=== PATIENT | male | born 1940 | race Caucasian/White ===

== ENCOUNTER 2018-07-21 13:17 | Inpatient (IN) | payer MEDICARE, BC ==
--- NOTE | 2018-07-21 16:57 | ED ---
General Adult HPI - General Source: patient, RN notes reviewed Mode of arrival: wheelchair Limitations: no limitations <Lauren Wright - Last Filed: 07/21/18 21:56> <Jack French - Last Filed: 07/21/18 23:38> - General Chief complaint: Extremity Problem,Nontraumatic Stated complaint: Leg pain Time Seen by Provider: 07/21/18 16:25 - History of Present Illness Initial comments: Patient is a 78 year old male with history of myasthenia gravis who presents to the ER with his nephew with complaint of right leg pain that started 7 days ago after he was standing for 13 hours; no trauma. He also hit his right ribs 2 weeks ago against a handrail; no head injury or loss of consciousness. Denies anticoagulant use. His nephew states that the patient cannot take care of himself lately because he cannot walk due to this new pain. Denies numbness, tingling, bowel or bladder incontinence, saddle anesthesia, fever, chills, abdominal pain, chest pain, shortness of breath, back pain, nausea, vomiting, headache, visual changes, or any other complaints. (Lauren Wright) - Related Data Home Medications Medication Instructions Recorded Confirmed Ibuprofen [Motrin] 400 mg PO Q6HR PRN 07/21/18 07/21/18 LORazepam [Ativan] 0.5 mg PO BID@1100,0000 07/21/18 07/21/18 Metoprolol Succinate (ER) [Toprol 25 mg PO DAILY 07/21/18 07/21/18 Xl] Allergies Allergy/AdvReac Type Severity Reaction Status Date / Time Sulfa (Sulfonamide AdvReac Abdominal Verified 07/21/18 21:28 Antibiotics) Pain Review of Systems ROS Other: All systems not noted in ROS Statement are negative. <Lauren Wright - Last Filed: 07/21/18 21:56> ROS Other: All systems not noted in ROS Statement are negative. <Jack French - Last Filed: 07/21/18 23:38> ROS Statement: Those systems with pertinent positive or pertinent negative responses have been documented in the HPI. Past Medical History Past Medical History: COPD Additional Past Medical History / Comment(s): Myasthenia gravis, irregular heart beat History of Any Multi-Drug Resistant Organisms: None Reported Past Surgical History: Appendectomy, Hernia Repair Additional Past Surgical History / Comment(s): hemorrhoidectomy Past Psychological History: No Psychological Hx Reported Smoking Status: Never smoker Past Alcohol Use History: None Reported Past Drug Use History: None Reported <Lauren Wright - Last Filed: 07/21/18 21:56> General Exam Limitations: no limitations General appearance: alert, in no apparent distress Head exam: Present: atraumatic, normocephalic Eye exam: Present: normal appearance Respiratory exam: Present: normal lung sounds bilaterally Cardiovascular Exam: Present: irregular rhythm (Patient states this is chronic.) Extremities exam: Present: full ROM, normal capillary refill, other (2+ edema bilateral lower extremities. DP bilaterally and PT on left palpable and strong. ) Back exam: Present: other Neurological exam: Present: alert, oriented X3 Psychiatric exam: Present: normal affect, normal mood Skin exam: Present: warm, dry <Lauren Wright - Last Filed: 07/21/18 21:56> Vital Signs 07/21/18 07/21/18 07/21/18 13:57 17:16 19:51 Temperature 98.1 F 97.8 F Pulse Rate 79 86 64 Respiratory 18 18 18 Rate Blood Pressure 150/87 142/68 152/72 O2 Sat by Pulse 99 96 100 Oximetry 07/21/18 22:20 Temperature Pulse Rate 99 Respiratory 18 Rate Blood Pressure 150/76 O2 Sat by Pulse 98 Oximetry EKG Findings - EKG Comments: EKG Findings:: EKG done on 07/21/2018: Vent. rate 65 bpm. MS interval 156 ms. QRS duration 94 ms. QT/QTc 446/463 ms. P-R-T axes 50 0 -48. Sinus rhythm with premature supraventricular complexes. ST&T wave abnormality. Prolonged QT <Lauren Wright - Last Filed: 07/21/18 21:56> Medical Decision Making - Lab Data Result diagrams: 07/21/18 19:45 07/21/18 19:45 <Lauren Wright - Last Filed: 07/21/18 21:56> - Lab Data Result diagrams: 07/21/18 19:45 07/21/18 19:45 <Jack French - Last Filed: 07/21/18 23:38> - Medical Decision Making Right lower extremity venous doppler duplex US negative for DVT. Right knee and tibia/fibula x-rays are negative. Right rib and chest x-ray negative for fracture, but reveals possible left upper lobe infiltrate. 2 view CXR reveals possible left upper lobe infiltrate on frontal view, but none on lateral view. EKG as documented. Patient reports that he has a chronic irregular heartbeat. Patient's nephew left the hospital and stated that the patient has "nowhere to go" because the patient lives alone. Case discussed in detail with attending physicians Dr. Hannah and (later when Dr. Hannah was ending his shift) with Dr. French. (Lauren Wright) I saw this patient in conjunction with the physician investigative assistant. I performed independent history and physical exam. Agree with case management.. Discussed case with patient's physician, Dr. Sinclair who will admit to see about rehabilitation placement. (Jack French) - Lab Data Lab Results 07/21/18 07/21/18 07/21/18 Range/Units 19:45 19:45 19:45 WBC 4.7 (3.8-10.6) k/uL RBC 3.62 L (4.30-5.90) m/uL Hgb 12.5 L (13.0-17.5) gm/dL Hct 35.4 L (39.0-53.0) % MCV 97.8 (80.0-100.0) fL MCH 34.4 (25.0-35.0) pg MCHC 35.2 (31.0-37.0) g/dL RDW 12.4 (11.5-15.5) % Plt Count 192 (150-450) k/uL Neutrophils % 72 % Lymphocytes % 15 % Monocytes % 9 % Eosinophils % 2 % Basophils % 1 % Neutrophils # 3.4 (1.3-7.7) k/uL Lymphocytes # 0.7 L (1.0-4.8) k/uL Monocytes # 0.4 (0-1.0) k/uL Eosinophils # 0.1 (0-0.7) k/uL Basophils # 0.0 (0-0.2) k/uL Sodium 137 (137-145) mmol/L Potassium 3.5 (3.5-5.1) mmol/L Chloride 99 (98-107) mmol/L Carbon Dioxide 28 (22-30) mmol/L Anion Gap 10 mmol/L BUN 11 (9-20) mg/dL Creatinine 0.55 L (0.66-1.25) mg/dL Est GFR (CKD-EPI)AfAm >90 (>60 ml/min/1.73 sqM) Est GFR (CKD-EPI)NonAf >90 (>60 ml/min/1.73 sqM) Glucose 102 H (74-99) mg/dL Calcium 9.2 (8.4-10.2) mg/dL Magnesium 1.8 (1.6-2.3) mg/dL Total Bilirubin 1.3 (0.2-1.3) mg/dL AST 26 (17-59) U/L ALT 26 (21-72) U/L Alkaline Phosphatase 87 (38-126) U/L Total Creatine Kinase 177 H (55-170) U/L CK-MB (CK-2) 2.1 (0.0-2.4) ng/mL CK-MB (CK-2) Rel Index 1.2 Troponin I <0.012 (0.000-0.034) ng/mL Total Protein 7.0 (6.3-8.2) g/dL Albumin 3.8 (3.5-5.0) g/dL Disposition <Lauren Wright - Last Filed: 07/21/18 21:56> Is patient prescribed a controlled substance at d/c from ED?: No <Jack French - Last Filed: 07/21/18 23:38> Clinical Impression: Unable to ambulate, Weakness Disposition: ADMITTED IP TO THIS HOSP Condition: Poor Referrals: Catalino Sinclair MD [Primary Care Provider] - 1-2 days
[2018-07-21] MEDS ORDERED: KETOROLAC 60 MG/2 ML VIAL IM STA (17:52)
--- NOTE | 2018-07-21 17:58 | XR ---
EXAMINATION TYPE: XR knee complete RT DATE OF EXAM: 07/21/2018 COMPARISON: NONE HISTORY: Knee pain TECHNIQUE: 3 views FINDINGS: I see no fracture nor dislocation. Joint spaces are normal. There is no sign of knee joint effusion. IMPRESSION: Negative right knee exam.
--- NOTE | 2018-07-21 17:59 | XR ---
EXAMINATION TYPE: XR tibia fibula RT DATE OF EXAM: 07/21/2018 COMPARISON: NONE HISTORY: Pain TECHNIQUE: 4 views FINDINGS: I see no fracture nor dislocation. Tibia and fibula appear intact. There are plantar and Ac hilles calcaneal spurs. IMPRESSION: No acute abnormality of the right tibia and fibula.
--- NOTE | 2018-07-21 18:01 | XR ---
EXAMINATION TYPE: XR ribs RT w pa chest xray DATE OF EXAM: 07/21/2018 COMPARISON: NONE HISTORY: Pain TECHNIQUE: 5 views FINDINGS: On the chest x-ray there is increased density over the left upper lobe that could be some p leural pulmonary infiltrate. The other lung groves are fairly clear. There is no pneumothorax. The ri ght ribs appear intact. I see no displaced rib fracture. IMPRESSION: No rib fracture seen. Left upper lobe pleural and pulmonary infiltrate. Limited exam.
--- NOTE | 2018-07-21 18:34 | US ---
EXAMINATION TYPE: US venous doppler duplex LE RT DATE OF EXAM: 07/21/2018 6:20 PM COMPARISON: NONE CLINICAL HISTORY: Pain. EC Patient with anterior midline right lower leg winter per patient noted afte r standing for approximately 13 hours SIDE PERFORMED: Right TECHNIQUE: The lower extremity deep venous system is examined utilizing real time linear array sonog dianelys with graded compression, doppler sonography and color-flow sonography. VESSELS IMAGED: Common Femoral Vein Deep Femoral Vein Greater Saphenous Vein * Femoral Vein Popliteal Vein Small Saphenous Vein * Proximal Calf Veins (* superficial vessels) Right Leg: Negative for DVT IMPRESSION: No evidence of deep venous thrombosis in the right leg.
--- NOTE | 2018-07-21 20:04 | XR ---
EXAMINATION TYPE: XR chest 2V DATE OF EXAM: 07/21/2018 COMPARISON: Today HISTORY: Leg pain TECHNIQUE: Frontal and lateral views of the chest are obtained. FINDINGS: 2 views of the chest show an enlarged heart. There is no heart failure. There is increased density over the left and right upper lung groves that is probably due to kyphotic deformity and grant st wall deformity. I do not see an infiltrate on the lateral view. There is suggestion however of an infiltrate in the periphery of the left upper lobe on the frontal view. There is no pleural effusion. There is thoracic vertebral body anterior wedging and kyphotic curvature. There is osteopenia. IMPRESSION: Cardiomegaly. No heart failure. Possible left upper lobe infiltrate. Limited exam due to patient positioning and kyphotic curvature.
[2018-07-21 20:08] LABS: Basophils % (A) 1 %; Eosinophils # (A) 0.1 k/uL (0-0.7); Eosinophils % (A) 2 %; HCT 35.4 % (39.0-53.0); HGB 12.5 gm/dL (13.0-17.5); Lymphocytes # (A) 0.7 k/uL (1.0-4.8); Lymphocytes % (A) 15 %; MCH 34.4 pg (25.0-35.0); MCHC 35.2 g/dL (31.0-37.0); MCV 97.8 fL (80.0-100.0); Mean Platelet Volume 7.5; Monocytes # (A) 0.4 k/uL (0-1.0); Monocytes % (A) 9 %; Neutrophils # (A) 3.4 k/uL (1.3-7.7); Neutrophils % (A) 72 %; Platelet Count 192 k/uL (150-450); RBC 3.62 m/uL (4.30-5.90); RDW 12.4 % (11.5-15.5); WBC 4.7 k/uL (3.8-10.6)
[2018-07-21 20:20] LABS: Creatine Kinase 177 U/L (55-170)
[2018-07-21 20:22] LABS: ALT 26 U/L (21-72); AST 26 U/L (17-59); Albumin 3.8 g/dL (3.5-5.0); Alkaline Phosphatase 87 U/L (38-126); Anion Gap 10 mmol/L; Blood Urea Nitrogen 11 mg/dL (9-20); Calcium 9.2 mg/dL (8.4-10.2); Carbon Dioxide 28 mmol/L (22-30); Chloride 99 mmol/L (98-107); Glucose 102 mg/dL (74-99); Magnesium 1.8 mg/dL (1.6-2.3); Potassium 3.5 mmol/L (3.5-5.1); Sodium 137 mmol/L (137-145); Total Bilirubin 1.3 mg/dL (0.2-1.3)
[2018-07-21 20:29] LABS: Creatine Kinase MB 2.1 ng/mL (0.0-2.4)
[2018-07-21 20:33] LABS: Troponin I <0.012 ng/mL (0.000-0.034)
[2018-07-21] MEDS ORDERED: NALOXONE 0.4 MG/ML 1 ML VIAL IV PRN (23:33)
[2018-07-21] MEDS ORDERED: IBUPROFEN 400 MG TAB PO PRN (23:36)
[2018-07-22] MEDS: LORazepam 0.5 MG TAB PO SCH ×2 (01:04→10:41)
[2018-07-22] MEDS: SODIUM CHLORIDE 0.9% 1,000 ML IV SCH ×5 (02:01→23:54)
[2018-07-22 02:28] VITALS: BMI 18.4
[2018-07-22] MEDS: FAMOTIDINE 20 MG TAB PO SCH ×2 (10:41→20:57)
[2018-07-22] MEDS: METOPROLOL SUCCINATE (ER) 25 MG TAB.ER.24H PO SCH (10:41)
--- NOTE | 2018-07-22 18:32 | HP ---
HISTORY AND PHYSICAL CHIEF COMPLAINT: Generalized weakness and debility with failure to thrive, frequent falling and inability to ambulate. HISTORY OF PRESENT ILLNESS: This is the first known admission for this 78-year-old white male who has gradually been deteriorating over the last several years. He has become progressively more weak. He has been living alone. He has been given a diagnosis of myasthenia gravis in the past, but he has an atypical case, if it has. He is very independent and has not been willing to follow up with Neurology or take any medications as prescribed. He has gotten to the point now where he cannot stand, and he has been falling at home. He and his family realize that he needs to be placed. REVIEW OF SYSTEMS: He has had no headaches, cognitive changes, changes in the cranial nerves, chest pain, shortness of breath, cough, hemoptysis, heart disease, angina, infarctions, etc. He does have a heart murmur and he has frequent PVCs, which has been chronic and asymptomatic. He has had no abdominal pain, nausea, vomiting, melena, hematochezia, jaundice. No pancreatitis, kidney failure, renal disease, stones, dysuria, frequency, incontinence, etc. He is not diabetic. Past medical history, family history and personal and social histories are otherwise essentially unremarkable. He is ALLERGIC TO SULFA. He is on Toprol-XL 50 mg once a day, Ativan 0.5 mg 3 times a day. Family history and personal and social histories are unremarkable and noncontributory. He has never smoked or drunk. PHYSICAL EXAMINATION: Blood pressure is 123/68 with a pulse 74, respirations of 30, and he is afebrile. In general he appears to be malnourished, chronically ill, slightly pale and dehydrated. Head, ears, eyes, nose, mouth and throat are normal. Carotids are normal. Neck veins are not distended. Chest is clear. Cardiac exam demonstrates a grade 3/ systolic murmur with occasional skipped beats. The abdomen is flat, soft, nontender. Extremities demonstrate poor muscle bulk. He has dry skin on the lower extremities with some evidence of mild venostasis disease and onychomycosis. Neurologically he is intact, but extremities are extremely weak. There is no evidence of any muscle spasm or twitching. He is admitted to the hospital with diagnoses: 1. Inability to ambulate, failure to thrive and general debility. 2. History of possible myasthenia gravis or other neuromuscular disease. 3. Frequent premature ventricular contractions. 4. Cardiac murmur. PLAN: 1. Bed rest. 2. IV fluids. 3. Discharge planning. ANALISA / NAI: [id number] /
--- NOTE | 2018-07-22 18:44 | PN ---
PROGRESS NOTE DATE OF SERVICE: 07/22/2018 CHIEF COMPLAINT: Generalized weakness. HISTORY OF PRESENT ILLNESS: This gentleman has not had any significant change in his program overnight, but he is expressing a lot of anxiety and asking many questions about his condition and where he will go. He seems to be resigned to moving to a intermediate. Cardiac exam is unchanged. Chest is clear. IMPRESSION: 1. General debility. 2. Myasthenia gravis. 3. Premature ventricular contractions. 4. Cardiac murmur. PLAN: Start working on discharge planning. MMEVINL / CARLITAN: [id number] /
[2018-07-23] MEDS: LORazepam 0.5 MG TAB PO SCH ×2 (00:24→10:57)
[2018-07-23] MEDS: SODIUM CHLORIDE 0.9% 1,000 ML IV SCH ×4 (04:42→21:20)
[2018-07-23] MEDS: FAMOTIDINE 20 MG TAB PO SCH ×2 (08:52→21:17)
[2018-07-23] MEDS: METOPROLOL SUCCINATE (ER) 25 MG TAB.ER.24H PO SCH (08:52)
[2018-07-24] MEDS: LORazepam 0.5 MG TAB PO SCH ×2 (00:19→11:20)
[2018-07-24] MEDS: SODIUM CHLORIDE 0.9% 1,000 ML IV SCH ×2 (07:23→11:21)
[2018-07-24] MEDS: FAMOTIDINE 20 MG TAB PO SCH ×2 (07:31→20:27)
[2018-07-24] MEDS: METOPROLOL SUCCINATE (ER) 25 MG TAB.ER.24H PO SCH (07:31)
--- NOTE | 2018-07-24 15:31 | PN ---
PROGRESS NOTE CHIEF COMPLAINT: Failure to thrive and delirium. HISTORY OF PRESENT ILLNESS: This gentleman is getting a bit confused. It sounds like he is hallucinating. PHYSICAL EXAM: Chest is clear. Cardiac exam is normal. IMPRESSION: 1. General debility and failure to thrive. 2. Myasthenia gravis. 3. Delirium. PLAN: We will start working on discharge location. ANALISA / CARLITAN: [id number] /
--- NOTE | 2018-07-24 16:34 | PN ---
PROGRESS NOTE CHIEF COMPLAINT: Failure to thrive and general debility. HISTORY OF PRESENT ILLNESS: This gentleman is getting confused from time to time. He has never had a problem with this before. PHYSICAL EXAM: He is neurologically intact. Chest is clear. Cardiac exam is normal. At the present time he is awake, alert, oriented and lucid. IMPRESSION: 1. Failure to thrive. 2. General debility. 3. Myasthenia gravis. 4. Delirium. PLAN: Continue searching for snf bed. MMODL / IJN: [id number] /
[2018-07-25] MEDS: LORazepam 0.5 MG TAB PO SCH ×3 (01:04→22:28)
[2018-07-25] MEDS: SODIUM CHLORIDE 0.9% 1,000 ML IV SCH ×4 (01:08→22:28)
[2018-07-25 01:42] LABS: Appearance,Urine Clear (Clear); Bilirubin,Urine Negative (Negative); Blood,Urine Negative (Negative); Color,Urine Yellow; Glucose,Urine (UA) Negative (Negative); Ketones,Urine 1+ (Negative); Leukocyte Esterase,Urine Negative (Negative); Nitrite,Urine Negative (Negative); Protein,Urine Negative (Negative)
[2018-07-25] MEDS: METOPROLOL SUCCINATE (ER) 25 MG TAB.ER.24H PO SCH (08:30)
[2018-07-25] MEDS: FAMOTIDINE 20 MG TAB PO SCH ×2 (08:30→20:47)
--- NOTE | 2018-07-25 16:48 | PN ---
PROGRESS NOTE DATE OF SERVICE: 07/25/2018 CHIEF COMPLAINT: General debility and weakness. HISTORY OF PRESENT ILLNESS: This gentleman seems to be doing a little bit better. The episodes of confusion and hallucination seem to have subsided, probably from more rest. PHYSICAL EXAM: Chest is clear. The cardiac exam is normal. The. Abdomen is soft. Neuromuscular status is unchanged. IMPRESSION: 1. General debility and weakness. 2. Myasthenia gravis. PLAN: Await discharge location. MMODL / IJN: [id number] /
[2018-07-26] MEDS: SODIUM CHLORIDE 0.9% 1,000 ML IV SCH ×5 (02:54→23:47)
[2018-07-26] MEDS: METOPROLOL SUCCINATE (ER) 25 MG TAB.ER.24H PO SCH (09:30)
[2018-07-26] MEDS: FAMOTIDINE 20 MG TAB PO SCH ×2 (09:30→20:12)
[2018-07-26] MEDS: LORazepam 0.5 MG TAB PO SCH ×2 (10:51→23:35)
--- NOTE | 2018-07-26 23:34 | CONS ---
CONSULTATION DATE OF CONSULTATION: 07/26/2018. PURPOSE OF CONSULTATION: Evaluate for mental status change. HISTORY OF PRESENTING ILLNESS: The patient is a 78-year-old male, he was admitted to the medical floor for debility and failure to thrive. He has a possible history of myasthenia gravis. Apparently the patient has been living at home independently. Over the last few years he has had a gradual decline in his ability to function. More recently he developed progressive weakness. He had gotten to a point where he could not stand and had been falling at home. According to nursing, over the weekend the patient had kept an episode of confusion where he became disoriented. He was making odd statements. On the the Dr. Sinclair noted that the patient was having some anxiety about his situation. On the and Dr. Sinclair documented that the patient was having episodes of confusion and indications that he also was hallucinating. Nursing staff said that he was disorganized in things he was saying. He was also making odd statements that made little sense. It was noted that yesterday, Dr. Sinclair documented that the patient "seems to be doing a little bit better. The episodes of confusion and hallucinations seem to have subsided, probably from more rest." When I talked to the nurse, she confirmed Dr. Sinclair's observation that today he seems to be doing better. He was better oriented. He was more appropriate in his interactions. He had a calm manner overall. When I talked to the patient, he was quite conversant. He talked at length about a number of issues. A fair amount of time he seemed to ramble and would talk about events that were somewhat disconnected from his current situation. He was unable to provide much information about things leading up to his hospitalization. He made mention of his mother passing some years back, some issues relating to his brother, and even some things about obtaining issues from the past. The patient states that he had been having pain problems, though today pain issues in his lower legs seem pretty much relieved. The patient indicated that he has not had any past history of psychiatric issues. He has not previously been on any psychotropic medications. Currently, he is on Ativan 0.5 mg twice a day as his only psychotropic medication. MENTAL STATUS: Patient was lying in bed. He gave fair eye contact. He was somewhat restless. He answered questions with appropriate responses, though often he would digress and would talk in a fairly rapid voice about events from his past. He would give considerable amount of details. He talked in a somewhat rapid staccato type rhythm. His affect was a little anxious, though not significantly so. His mood was fairly good. He did not appear to be in distress from a psychiatric standpoint. He did focus some on questions he had about discharge. He understood that he may be going to rehabilitation facility within the next few days. On cognitive exam, he did not make too much effort to answer questions. He knew that he was in [facility]. He made some suggestions that he thought he had been in the hospital for 2 weeks, though was unable to give the date of hospitalization. He did state that his home medications included metoprolol 25 mg a day and Ativan. He indicated he was on 0.25 mg twice a day. He said he has been taking Ativan for a number of years. He was able to describe his current circumstances. He was able to give some details about his followup with Dr. Sinclair. ASSESSMENT: This is a 78-year-old male who had acute mental status change. It is likely he had some degree of delirium, possibly relating to medications as well as some other factors that led to his coming into the hospital. He has shown clearing in the last day. He is concerned about his continued use and Ativan which will have significant negative cognitive affects, particularly on memory as well as motor impairment. Overall, he does not seem to be showing any signs of mood disorder. anxiety seems reasonably controlled. I will initiate a taper of Ativan given the problems with exacerbation of memory and motor problems with Ativan. I will reduce his dose to 0.25 mg tonight and then re-evaluate tomorrow. We will need to monitor for withdrawal issues. I will continue to follow. MMODL / IJN: [id number] /
[2018-07-27] MEDS: METOPROLOL SUCCINATE (ER) 25 MG TAB.ER.24H PO SCH (07:38)
[2018-07-27] MEDS: FAMOTIDINE 20 MG TAB PO SCH ×2 (07:38→20:18)
--- NOTE | 2018-07-27 16:50 | PN ---
PROGRESS NOTE DATE OF SERVICE: 07/26/2018 CHIEF COMPLAINT: Myasthenia gravis and general debility with inability to ambulate. HISTORY OF PRESENT ILLNESS: This gentleman continues to do fairly well. His mentation has cleared nicely. We are waiting for discharge to alf. PHYSICAL EXAM: Neuromuscularly he is unchanged with severe muscle wasting in the upper and lower extremities. Chest is clear. Cardiac exam is normal. IMPRESSION: 1. General debility. 2. Inability to ambulate. 3. Failure to thrive. 4. Malnutrition. 5. Myasthenia gravis. PLAN: Await for placement. MMODL / IJN: [id number] /
[2018-07-27] MEDS: SODIUM CHLORIDE 0.9% 1,000 ML IV SCH ×2 (17:10→20:14)
--- NOTE | 2018-07-27 17:14 | PN ---
PROGRESS NOTE DATE OF SERVICE: 07/27/2018 CHIEF COMPLAINT: General debility and failure to thrive. HISTORY OF PRESENT ILLNESS: This patient is about the same. Delirium is clear. He is waiting for a bed. PHYSICAL EXAM: Chest is clear. Cardiac exam is normal. He is extremely asthenic and weak. IMPRESSION: 1. Myasthenia gravis. 2. General debility. 3. Failure to thrive. 4. Inability to ambulate. PLAN: Await jail placement. MMODL / IJN: [id number] /
[2018-07-27] MEDS: LORazepam 0.5 MG TAB PO SCH (20:18)
[2018-07-28] MEDS: FAMOTIDINE 20 MG TAB PO SCH ×2 (07:44→21:58)
[2018-07-28] MEDS: METOPROLOL SUCCINATE (ER) 25 MG TAB.ER.24H PO SCH (07:45)
--- NOTE | 2018-07-28 13:12 | CDI ---
Documentation Clarification Form Date: 07/28/2018 1:03:09 PM From: Margaux Price CCS, CCDS Admit Date: 07/26/2018 2:36:00 PM Patient Name: Louis Choudhary Visit Number: [id number] Discharge Date: ATTENTION: The Clinical Documentation Specialists (CDI) and [facility] Coding Staff appreciate your assistance in clarifying documentation. Please respond to the clarification below the line at the bottom and electronically sign. The CDI & [facility] Coding staff will review the response and follow-up if needed. Please note: Queries are made part of the Legal Health Record. If you have any questions, please contact the author of this message via ITS. Dr. Catalino Sinclair: Malnutrition has been documented in the 07/27 attending progress note: "Neuromuscularly he is unchanged with severe muscle wasting in the upper and lower extremities". Diagnosed with general debility, Inability to ambulate, Failure to thrive, Malnutrition and has known myasthenia gravis. History/Risk Factors: As above, Lives alone. Frequent falls. Clinical Indicators: Presented with right leg pain, inability to walk. Labs: Hgb 12.5*, Glucose 102^, Total protein 7.0, Albumin 3.8. BMI: 18.5 Dietitian consult & evaluation: Appetite fair, Consuming 50-75% meals with fair intake, Underweight. 78% ideal body weight. 21 lb weight loss this year per patient. Chronic severe protein calorie malnutrition. Visible severe body fat & muscle loss, reduced functional status. Treatment: Nutritional supplements, IM Toradol, IV fluid rate 100 - 20, po Ativan. In your professional opinion, can you please clarify if these findings signify one of the following conditions? Mild Protein-Calorie Malnutrition Moderate Protein-Calorie Malnutrition Severe Protein-Calorie Malnutrition Other condition, please specify Unable to determine (Last Revision: October 2017) MTDD
[2018-07-28] MEDS: LORazepam 0.5 MG TAB PO SCH (21:58)
[2018-07-29] MEDS: METOPROLOL SUCCINATE (ER) 25 MG TAB.ER.24H PO SCH (08:10)
[2018-07-29] MEDS: FAMOTIDINE 20 MG TAB PO SCH (08:10)
--- NOTE | 2018-07-29 11:57 | DS ---
DISCHARGE SUMMARY CHIEF COMPLAINT: Failure to thrive, general debility, generalized weakness and inability to ambulate. HISTORY OF PRESENT ILLNESS AND PHYSICAL EXAM: Details of this man's history and physical can be found in the initial workup. LABORATORY STUDIES: While he was in the hospital, he had laboratory studies, details of which can be found in the laboratory section of the chart. COURSE IN HOSPITAL: After admission, he was placed on bedrest, started on intravenous fluids and bedrest. He could not ambulate. He was able to feed himself, but nothing more. Initially had troubles with delirium and then this seemed to improve. A bed was found for him at [facility] for 07/29 and he will go there for physical therapy and rehab. FINAL DIAGNOSES: 1. General debility. 2. Generalized weakness. 3. Failure to thrive. 4. Malnutrition. 5. Myasthenia gravis. 6. Premature ventricular contractions. OPERATIONS: None. CONSULTATION: None/ He is improved. MMODL / CARLITAN: [id number] /
[2018-07-29 14:15] VITALS: BP 117/75; PULSE 77; RESP 18; TEMP 98.6
--- NOTE | 2018-07-29 14:16 | PN ---
PROGRESS NOTE DATE OF SERVICE: 07/28/2018 CHIEF COMPLAINT: Myasthenia gravis and failure to thrive. HISTORY OF PRESENT ILLNESS: This gentleman has been stable and awaits penitentiary placement. PHYSICAL EXAM: Chest is clear and cardiac exam is normal except for occasional PVCs. He is bedridden. IMPRESSION: Myasthenia gravis, general debility and weakness and inability to ambulate. PLAN: Await penitentiary placement. MMODL / IJN: [id number] /
--- NOTE | 2018-07-30 08:35 | CDI ---
Documentation Clarification Form Date: 07/30/2018 8:24:15 AM From: Margaux Price CCS, CCDS Admit Date: 07/26/2018 2:36:00 PM Patient Name: Louis Choudhary Visit Number: [id number] Discharge Date: 07/29/2018 3:10:00 PM ATTENTION: The Clinical Documentation Specialists (CDI) and [facility] Coding Staff appreciate your assistance in clarifying documentation. Please respond to the clarification below the line at the bottom and electronically sign. The CDI & [facility] Coding staff will review the response and follow-up if needed. Please note: Queries are made part of the Legal Health Record. If you have any questions, please contact the author of this message via ITS. Dr. Catalino Sinclair: Per the Discharge Summary the patient presented with the followin.General debility. 2.Generalized weakness. 3.Failure to thrive. 4.Malnutrition. 5.Myasthenia gravis. 6.Premature ventricular contractions. History/Risk Factors: Previously diagnosed with Myasthenia Gravis, COPD, normally independent. Clinical Indicators: Leg pain, frequent falls, mental status changes, progressive weakness. Lab findings: Hgb 12.5, Gluc 102, total creatine kinase 177^ Radiology findings: Rt knee, Rt ribs, Rt Tibia/fibula all negative for fracture & abnormalities. CXR: Cardiomegaly, possible LUZ infiltrate. Vital Signs: T 98.1, P 79, R 18, BP 150/87, PO 99 RA Other Clinical Indicators: Per psychiatric consult for mental status changes: Likely some degree of delirium, possibly relating to medications & other factors with improvement. Treatment: IM Toradol, IV fl rate 100, IV Narcan, po Ativen In your professional opinion, can you please clarify the acuity of the patient' s Myasthenia Gravis? Myasthenia gravis without acute exacerbation Myasthenia gravis with acute exacerbation Other, please specify Unable to determine (Last Revision: October 2017) MTDD
--- NOTE | 2018-07-31 20:51 | MISC ---
MISCELLANOUS REPORT This is myasthenia gravis without acute exacerbation. MMODL / IJN: [id number] /
--- NOTE | 2018-08-01 10:55 | MISC ---
MISCELLANOUS REPORT Moderate protein calorie malnutrition. MMODL / IJN: [id number] /
--- NOTE | 2018-08-02 08:51 | CDI ---
Documentation Clarification Form Date: 08/02/18 From: Zakia Gabe Melinda Anguiano, Burr Sander Hours-8:30 am & 5 pm Harika Admit Date: 07/26/2018 2:36:00 PM Patient Name: Louis Choudhary Visit Number: [id number] Discharge Date: 07/29/2018 3:10:00 PM ATTENTION: The Clinical Documentation Specialists (CDI) and [facility] Coding Staff appreciate your assistance in clarifying documentation. Please respond to the clarification below the line at the bottom and electronically sign. The CDI & [facility] Coding staff will review the response and follow-up if needed. Please note: Queries are made part of the Legal Health Record. If you have any questions, please contact the author of this message via ITS. Dr. Catalino Sinclair The patient presented with failure to thrive, general debility/malaise with myasthenia gravis. History/Risk Factors: myasthenia gravis, mod PCM, COPD Clinical Indicators: Lab findings: Total Cr Kinase-177 H Vital Signs: T-98.1, P-79, R-18, BP-150/87, O2 sat 99 RA Treatment: bedrest, IV fluids, xrays of knee, ribs, tib/fib, venous doppler, cxr Consults: Psych In your professional opinion, can you please clarify the principal diagnosis? Failure to thrive General debility/malaise Myasthenia gravis, wo exacerbation Other, please specify Unable to determine MTDD
--- NOTE | 2018-08-05 20:31 | MISC ---
MISCELLANOUS REPORT QUERY: The principal diagnosis would be myasthenia gravis. MMODL / IJN: [id number] /
== END 2018-07-29 15:10 | DRG 57 ==
LOC: EC 13:17 → 1SOBS 23:38 → 4MS4W 07-22 21:45 → OBSVTOIN 07-26 14:36
PROVIDERS: ADMIT Family Medicine; ATTEND Family Medicine
DX: G70.00 Myasthenia gravis without (acute) exacerbation (principal); F05 Delirium due to known physiological condition; E44.0 Moderate protein-calorie malnutrition; Z68.1 Body mass index [BMI] 19.9 or less, adult; R53.81 Other malaise; R62.7 Adult failure to thrive; J44.9 Chronic obstructive pulmonary disease, unspecified; M62.59 Muscle wasting and atrophy, not elsewhere classified, multiple sites; B35.1 Tinea unguium; F41.9 Anxiety disorder, unspecified; I49.3 Ventricular premature depolarization; R29.6 Repeated falls; Z91.81 History of falling; Z79.899 Other long term (current) drug therapy; Z90.49 Acquired absence of other specified parts of digestive tract; Z88.2 Allergy status to sulfonamides; W19.XXXA Unspecified fall, initial encounter; Y92.009 Unspecified place in unspecified non-institutional (private) residence as the place of occurrence of the external cause
CPT/HCPCS: 36415; 71046; 80053; 81003; 82550; 82553; 83735; 84484; 85025; 87077; 87086; 87186; 93005; 96372; 99285

== ENCOUNTER → 2021-07-11 | Outpatient (CLI) | payer MEDICARE, BC ==
[2021-07-11 16:19] LABS: Appearance,Urine Clear (Clear); Bacteria,Urine Rare /hpf; Bilirubin,Urine Negative (Negative); Blood,Urine Moderate (Negative); Color,Urine Light Yellow; Glucose,Urine (UA) Negative (Negative); Hyaline Casts,Urine 1 /lpf (0-2); Ketones,Urine Negative (Negative); Leukocyte Esterase,Urine Negative (Negative); Nitrite,Urine Negative (Negative); Protein,Urine Negative (Negative); RBC,Urine 11 /hpf (0-5); Specific Gravity,Urine 1.008 (1.001-1.035); Urobilinogen,Urine <2.0 mg/dL (<2.0); WBC,Urine 2 /hpf (0-5)
== END | disposition home or self-care (01) ==
LOC: LABWHC1 15:16
PROVIDERS: ATTEND Family Medicine
DX: N39.0 Urinary tract infection, site not specified (principal)
CPT/HCPCS: 81001; 87086